=== PATIENT | female | born 1980 | race African-American/Black ===

== ENCOUNTER 2020-09-16 08:22 | Emergency (ER) | payer SELFPAY ==
[~2020-09-16] VITALS: Ht 160 cm; Wt 60.6 kg
[2020-09-16] MEDS ORDERED: ONDANSETRON 2MG/ML, 2ML ONE (08:44)
[2020-09-16] MEDS ORDERED: MORPHINE SULFATE 4 MG/ML, 1ML ONE (08:44)
[2020-09-16] MEDS ORDERED: MORPHINE SULFATE 4 MG/ML, 1ML IVPush PRN (09:00)
[2020-09-16] MEDS ORDERED: ONDANSETRON 2MG/ML, 2ML IVPush ONE (09:00)
[2020-09-16] MEDS ORDERED: SODIUM CHLORIDE 0.9% 1,000 ML IV ONE (09:00)
--- NOTE | 2020-09-16 09:08 | NUR ---
PT CO LOWER STOMACH PAIN X 15 DAYS. PT STATES BLEEDING ON AND OFF X 3 DAYS. PT HAS AN IUD INSERTED.
[2020-09-16 09:19] LABS: BASOPHILS % (AUTO) 1 % (0-1); EOSINOPHILS % (AUTO) 0 % (1-7); LYMPHOCYTES % (AUTO) 25 % (22-44); MEAN CORPUSCULAR HEMOGLOBIN 23.2 pg (27.0-34.8); MEAN PLATELET VOLUME 8.2 fL (7.4-10.4); MONOCYTES % (AUTO) 7 % (2-9); NEUTROPHILS % (AUTO) 67 % (42-75); PLATELET COUNT 250 x10^3/uL (130-400); RED BLOOD COUNT 4.72 x10^6/uL (3.82-5.3); RED CELL DISTRIBUTION WIDTH 16.8 % (9.6-15.2)
[2020-09-16 09:28] LABS: ANION GAP 6 mmol/L (5-15); CALCIUM 8.6 mg/dL (8.5-10.1); CHLORIDE 105 mmol/L (98-107); CREATININE 0.73 mg/dL (0.55-1.02)
[2020-09-16 09:29] LABS: ALBUMIN 3.7 g/dL (3.4-5.0)
[2020-09-16] MEDS ORDERED: PLEASE ENTER ALLERGIES MC SCH (09:30)
[2020-09-16 09:31] LABS: MD NO
[2020-09-16 09:48] LABS: MICROSCOPIC INDICATED
--- NOTE | 2020-09-16 09:50 | NUR ---
PT OFF THE FLOOR TO ULTRASOUND
--- NOTE | 2020-09-16 10:09 | NUR ---
PT BACK IN ROOM FROM ULTRASOUND
[2020-09-16 10:54] VITALS: BP 109/61
--- NOTE | 2020-09-16 11:20 | NUR ---
PT REC'VD DISCHARGE INSTRUCTIONS AND EDUCATION VIA [employer] [id number]. PT STATED NO FURTHER QUESTIONS. PT WALKED TO DISCHARGE AREA, STEADY GAIT.
== END 2020-09-16 11:25 | disposition home or self-care (01) ==
LOC: ED 10:41
DX: N92.4 Excessive bleeding in the premenopausal period (principal); N93.8 Other specified abnormal uterine and vaginal bleeding; R10.32 Left lower quadrant pain
CPT/HCPCS: 36415; 76830; 80048; 81001; 82040; 84702; 85025; 86901; 96361; 96374; 96375; 99284; J2270; J2405; J7030